=== PATIENT | female | born 1950 | race Caucasian/White ===

== ENCOUNTER 2018-07-02 15:10 | Emergency (ER) | payer BC ==
--- NOTE | 2018-07-02 15:31 | ED ---
Head Injury - HPI Summary HPI Summary: Pt is a 68 y/o female who presents to the ED s/p fall. She slipped backwards on ice in her driveway [employer] and hit her head on the bumper of her car. There was probable LOC. Pt has a left-sided parietal hematoma and pain to this area. She also c/o neck pain, anterior chest pain, right-sided torso pain, and mild confusion. The pain is rated 9/10 in severity. She denies any injury to her chest. Pt denies any N/V, abdominal pain, numbness, weakness, or SOB. Pt denies the use of blood thinners. She has a hx of concussions, but none are recent. - History Of Current Complaint Chief Complaint: EDTraumaMultiple Stated Complaint: FALL , HEAD AND NECK PAIN Time Seen by Provider: 07/02/18 15:30 Hx Obtained From: Patient, Family/Set Decorator - Son in law Mechanism Of Injury: Fall From A Standing Position - slipped on ice Onset/Duration: Started Hours Ago - [employer], Still Present Onset of Pain: Immediate Severity Currently: Severe Pain Intensity: 9 Pain Scale Used: 0-10 Numeric Location of Head Injury: Parietal - left Aggravating Factor(s): Movement Associated Signs And Symptoms: LOC Duration Unknown, Confusion, Neck Pain - Allergies/Home Medications Allergies/Adverse Reactions: Allergies Allergy/AdvReac Type Severity Reaction Status Date / Time Penicillins Allergy Hives Verified 07/02/18 15:17 PMH/Surg Hx/FS Hx/Imm Hx Endocrine/Hematology History: Denies: Hx Diabetes Cardiovascular History: Denies: Hx Hypertension Infectious Disease History: No Infectious Disease History: Denies: Traveled Outside the [place] in Last 30 Days - Family History Known Family History: Positive: Other - stomach CA - Social History Alcohol Use: None Hx Substance Use: No Substance Use Type: Reports: None Hx Tobacco Use: No Smoking Status (MU): Never Smoked Tobacco Review of Systems Negative: Shortness Of Breath Negative: Abdominal Pain, Vomiting, Nausea Positive: Myalgia - neck pain, anterior chest pain, right-sided torso pain, Other - head pain Positive: Other - hematoma left parietal Neurological: Other - confusion, LOC Negative: Weakness, Numbness All Other Systems Reviewed And Are Negative: Yes Physical Exam - Summary Physical Exam Summary: Appearance: Well appearing, no pain distress Skin: warm, dry, reflects adequate perfusion Head/face: left-sided parietal hematoma, no Battles signs Eyes: EOMI, LUIS MIGUEL ENT: mucous membranes moist, no hemotympanum Neck: supple, diffuse tenderness through cervical region midline and muscular Respiratory: CTA, breath sounds present Cardiovascular: RRR, pulses symmetrical Abdomen: non-tender, soft, no chest wall tenderness Bowel Sounds: present Musculoskeletal: normal, strength/ROM intact Neuro: normal, sensory motor intact, A&Ox3 GCS: 15 Triage Information Reviewed: Yes Vital Signs On Initial Exam: Initial Vitals Temp Pulse Resp BP Pulse Ox 97.3 F 78 18 170/82 98 07/02/18 15:13 07/02/18 15:13 07/02/18 15:13 07/02/18 15:13 07/02/18 15:13 Vital Signs Reviewed: Yes Diagnostics - Vital Signs Vital Signs Temp Pulse Resp BP Pulse Ox 07/02/18 15:13 97.3 F 78 18 170/82 98 - Laboratory Lab Statement: Any lab studies that have been ordered have been reviewed, and results considered in the medical decision making process. - Radiology CXR Radiology Interpretation Completed By: Radiologist Summary of Radiographic Findings: No active cardiopulmonary disease is noted. ED physician reviewed radiology report. - CT Cervical Spine CT CT Interpretation Completed By: Radiologist Summary of CT Findings: No fracture of the cervical spine is noted. Degenerative disc disease at. C4-C5, C5-C6 and C6-C7. ED physician reviewed radiology report. Brain CT CT Interpretation Completed By: Radiologist Summary of CT Findings: There is no evidence of intracranial mass or hemorrhage present. ED physician reviewed radiology report. Head Injury Course/Dx Course Of Treatment: Nurse's notes reviewed. The patient with fall and head injury with likely short loss of consciousness. She has some postconcussive syndrome at this point. Head CT, neck CT negative. She is placed in a soft cervical collar for comfort. Chest x-ray was negative. There is no reproducible discomfort on exam. Treat symptomatically, follow up primary care physician on [facility] where she lives. - Diagnoses Differential Diagnosis/HQI/PQRI: Concussion With LOC, Intracranial Bleed Provider Diagnoses: Closed head injury, Concussion Discharge - Sign-Out/Discharge Documenting (check all that apply): Patient Departure - Discharge - Discharge Plan Condition: Improved Disposition: HOME Prescriptions: Cyclobenzaprine (NF) [Cyclobenzaprine 5 MG (NF)] 5 mg PO TID PRN #10 tab PRN Reason: muscle pain Naproxen [Naproxen 500 mg tab] 500 mg PO BID PRN #10 tablet PRN Reason: Pain Ondansetron ODT TAB* [Zofran 4 MG Odt TAB*] 4 mg PO Q8H PRN #12 tab.odt PRN Reason: Nausea Patient Education Materials: Cervical Strain (ED), Concussion (ED) Referrals: [facility] [Outside] [facility] [Outside] Additional Instructions: Do not drive today. Do not drive until without headache, you have ability to range her neck side to side, and you're not getting dizzy. Ice to the sore spot on your head. Collar for comfort. You may follow-up with the [facility] here in the next 1-2 days or [place]. Return with severe headache, repetitive vomiting, worse, new symptoms or other concerns. - Billing Disposition and Condition Condition: IMPROVED Disposition: Home - Attestation Statements Document Initiated by Marcus: Yes Documenting Scribe: Danitza Mix Provider For Whom Marcus is Documenting (Include Credential): Eduardo Polanco MD Scribe Attestation: IDanitza scribed for Eduardo Polanco MD on 07/02/18 at 1841. Scribe Documentation Reviewed: Yes Provider Attestation: The documentation as recorded by the Danitza espinoza accurately reflects the service I personally performed and the decisions made by me, Eduardo Polanco MD Status of Scribe Document: Viewed
[2018-07-02] MEDS ORDERED: Ketorolac INJ* 30 MG/ML 1 ML VIAL IV PUSH ONE (15:53)
[2018-07-02] MEDS ORDERED: Ondansetron INJ* 2 MG/ML VIAL IV ONE (15:53)
[2018-07-02] MEDS ORDERED: Ondansetron ODT TAB* 4 MG ONE (16:42)
[2018-07-02] MEDS ORDERED: Ketorolac INJ* 30 MG/ML 1 ML VIAL IM ONE (16:44)
[2018-07-02] MEDS ORDERED: Ondansetron ODT TAB* 4 MG PO ONE (16:48)
[2018-07-02 16:59] VITALS: BP 151/79
== END 2018-07-02 17:00 | disposition home or self-care (01) ==
LOC: ED 15:10
DX: S06.0X0A Concussion without loss of consciousness, initial encounter (principal); S09.90XA Unspecified injury of head, initial encounter; M54.2 Cervicalgia; W00.0XXA Fall on same level due to ice and snow, initial encounter; Y92.9 Unspecified place or not applicable; Z88.0 Allergy status to penicillin
CPT/HCPCS: 70450; 71046; 72125; 96372; 96374; 96375; 99282; A9270-GY; J1885